=== PATIENT | male | born 2000 | race Hispanic/Latino ===

== ENCOUNTER 2019-11-27 21:27 | Emergency (ER) | payer SELFPAY ==
--- NOTE | 2019-11-27 23:49 | Emergency Department Report ---
ED General Adult HPI - General Chief complaint: Psych Stated complaint: PSYCH PUI?: No Time Seen by Provider: 11/27/19 23:29 Source: patient, RN notes reviewed Mode of arrival: Ambulatory Limitations: No Limitations - History of Present Illness Initial comments: This is a 18-year-old gentleman. This patient is not known to myself previously. He states he may have a history of schizophrenia. He states he is not take any prescription medications at this time. He presents to the ER today with a complaint of "I would like to have a mental evaluation." He states that for months, he has been seeing sound waves, and hearing things. He denies physical pain. He makes no complaint of headache, neck pain, chest pain, abdominal pain, shortness of breath. He is not homicidal suicidal. He states he is not tried to overdose. He does endorse that he is worried about the current coronavirus/COVID pandemic. He does not want to harm himself or harm other people. He has been having these symptoms for months. He does not describe aggravating or relieving factors that he is aware of. His symptoms do not radiate anywhere. -: Gradual, month(s) Improves with: none Worsens with: none Associated Symptoms: denies other symptoms ED Review of Systems ROS: Stated complaint: PSYCH Other details as noted in HPI Constitutional: denies: fever Eyes: denies: eye discharge ENT: denies: congestion Respiratory: denies: wheezing Cardiovascular: denies: chest pain, syncope Gastrointestinal: denies: abdominal pain Genitourinary: as per HPI. denies: dysuria Musculoskeletal: as per HPI Skin: as per HPI Neurological: as per HPI Psychiatric: as per HPI. denies: homicidal thoughts, suicidal thoughts ED Past Medical Hx - Past Medical History Previous Medical History?: Yes Hx Psychiatric Treatment: Yes (schizophrenia) - Surgical History Past Surgical History?: No - Social History Smoking Status: Current Every Day Smoker ED Physical Exam - General Limitations: No Limitations General appearance: alert, in no apparent distress - Head Head exam: Present: atraumatic, normocephalic - Eye Eye exam: Present: normal appearance, PERRL, EOMI, other (Visual acuity intact to finger counting, color perception, reading at a close distance). Absent: nystagmus - ENT ENT exam: Present: normal exam, normal orophraynx, mucous membranes moist, norm al external ear exam - Neck Neck exam: Present: normal inspection, full ROM. Absent: tenderness, meningismus - Respiratory Respiratory exam: Present: normal lung sounds bilaterally. Absent: respiratory distress - Cardiovascular Cardiovascular Exam: Present: regular rate, normal rhythm, normal heart sounds. Absent: bradycardia, tachycardia, irregular rhythm, systolic murmur, diastolic murmur, rubs, gallop - GI/Abdominal GI/Abdominal exam: Present: soft, normal bowel sounds. Absent: distended, tenderness, guarding, rebound, rigid, pulsatile mass - Rectal Rectal exam: Present: deferred - Extremities Exam Extremities exam: Present: normal inspection, full ROM, other (2+ pulses noted in the bilateral upper and lower extremities. There is no palpable cord. negative Homans sign. Muscular compartments are soft. The pelvis is stable.). Absent: pedal edema, calf tenderness - Back Exam Back exam: Present: normal inspection, full ROM. Absent: tenderness, CVA tenderness (R), CVA tenderness (L), paraspinal tenderness, vertebral tenderness - Neurological Exam Neurological exam: Present: alert, oriented X3, normal gait, other (No facial droop. Tongue midline. Extraocular movements intact bilaterally. Facial sensation intact to light touch in V1, V2, V3 distribution bilaterally. 5 and a 5 strength in 4 extremities. Sensation intact to light touch in 4 extremities.). Absent: motor sensory deficit - Psychiatric Psychiatric exam: Absent: manic, homicidal ideation, suicidal ideation - Skin Skin exam: Present: warm, dry, intact, normal color. Absent: rash ED Course Vital Signs 11/27/19 11/27/19 11/27/19 21:34 21:55 22:02 Temperature 98.1 F 103.0 F H 98.1 F Pulse Rate 85 98 H 85 Respiratory 16 20 16 Rate Blood Pressure 144/84 129/72 Blood Pressure 144/84 [Right] O2 Sat by Pulse 96 98 96 Oximetry ED Medical Decision Making - Lab Data Vital Signs 11/27/19 11/27/19 11/27/19 21:34 21:55 22:02 Temperature 98.1 F 103.0 F H 98.1 F Pulse Rate 85 98 H 85 Respiratory 16 20 16 Rate Blood Pressure 144/84 129/72 Blood Pressure 144/84 [Right] O2 Sat by Pulse 96 98 96 Oximetry - Medical Decision Making Differential diagnosis, including but not limited to: Schizophrenia, medical screening exam Assessment and plan: 18-year-old gentleman who is afebrile, with reassuring vital signs, (as per nursing documentation, vital signs with fever are entered incorrectly. This patient did not have a fever while here in the emergency room.) Who is clinically sober at this time, GCS of 15, walking with a steady gait, no focal motor neurologic deficits, with no medical complaints, endorsing months of nonspecific psychiatric symptoms. He is not homicidal or suicidal. He indicates he does not want to harm himself or harm other people. He indicates that he is not attempted to overdose. He exhibits rational decision- making thought process by indicating that he is worried about the current COVID pandemic. Of note, does not endorse any symptoms consistent with COVID/COVID pneumonia. He does not meet criteria for 1013 or involuntary psychiatric hold. His thought process is somewhat bizarre, however, this is been going on for months. Patient counseled that he may follow-up with an outpatient primary care doctor or psychiatrist. He will be discharged at this time. He will be given outpatient resources to follow-up with. Return precautions are reviewed. Critical care attestation.: If time is entered above; I have spent that time in minutes in the direct care of this critically ill patient, excluding procedure time. ED Disposition Clinical Impression: General medical exam Disposition: [id number] TO HOME OR SELFCARE Is pt being admited?: No Does the pt Need Aspirin: No Condition: Stable Additional Instructions: Please drink at least 6 cups of water per day indefinitely. Avoid consumption of methamphetamine and recreational drugs. Consumption of the aforementioned may cause addiction, disability, , paralysis, loss of quality of life. Follow-up with an outpatient primary care doctor within the next month. At the moment, the patient does not appear to have an immediate medical contraindication to outpatient detox therapy. Please return to the emergency room right away with projectile vomiting, change in mental status, confusion, inability to tolerate liquid feeds, confusion, worsening symptoms, or new, worsened or different symptoms not present on the initial emergency room evaluation. For the patient's convenience, he may present to any 1 of the local psychiatric facilities if he would like a more detailed mental health assessment, or he may follow-up with an outpatient psychiatrist at his discretion. [facility] in [place], [place] Address: [address], [place] [address] Hours: Open 24 hours [facility] in the [place], [place] Address: [address] [place] [address] [place] [address] Open 24 hours Referrals: KAMALJIT LYNN MD [Staff Physician] - 3-5 Days [facility] [Provider Group] - 3-5 Days [facility] [Outside] - 3-5 Days
== END 2019-11-27 23:56 | disposition home or self-care (01) ==
LOC: ED 21:27
DX: R44.0 Auditory hallucinations (principal); F20.89 Other schizophrenia; F17.200 Nicotine dependence, unspecified, uncomplicated; Z00.00 Encounter for general adult medical examination without abnormal findings
CPT/HCPCS: 99282